=== PATIENT | female | born 1985 | race African-American/Black ===

== ENCOUNTER 2022-05-22 09:49 | Outpatient (REF) | payer OTHER, SELFPAY ==
[2022-05-22 10:00] LABS: MANUAL DIFF FLAG NO
[2022-05-22 10:30] LABS: Basophils Absolute Auto 0.1 X10*3/uL (0.0-0.2); Basophils Percent Auto 0.6 % (0-2); Eosinophils Absolute Auto 0.4 X10*3/uL (0.0-0.4); Eosinophils Percent Auto 3.8 % (0-4); Hematocrit 34.7 % (37.0-47.0); Imm Gran Abs Auto 0.04 X10*3/uL (0.00-0.03); Imm Gran Pct Auto 0.4 % (0.0-0.4); Lymphocytes Absolute Auto 4.2 X10*3/uL (1.2-4.9); Lymphocytes Percent Auto 39.6 % (20-40); Mean Corpuscular HGB Conc 31.7 g/dl (31.0-35.0); Mean Corpuscular Hemoglobin 24.8 pg (27.0-33.0); Mean Corpuscular Volume 78.3 fL (80.0-98.0); Mean Platelet Volume 9.6 fL (9.4-12.3); Monocytes Absolute Auto 0.7 X10*3/uL (0.1-1.2); Monocytes Percent Auto 6.7 % (2-11); Neutrophils Absolute Auto 5.2 x10*3/uL (2.0-8.3); Neutrophils Percent Auto 48.9 % (45-73); Platelet Count 398 X10*3/uL (160-400); Red Blood Count 4.43 X10*6/uL (4.20-5.50); White Blood Count 10.6 X10*3/uL (4.8-10.8)
[2022-05-22 11:08] LABS: Anion Gap 12 (12-20); Blood Urea Nitrogen 9 mg/dL (9-16); Carbon Dioxide 25 mmol/L (22-29); Chloride 107 mmol/L (96-108); Erythrocyte Sedimentation Rate 38 MM/HR (0-20); Estimated Glomerular Filt Rate > 60; Glucose Random 74 mg/dL (60-115); Potassium 4.2 mmol/L (3.3-5.1); Sodium 140 mmol/L (135-145)
[2022-05-23 18:53] LABS: Lyme Abs Screen <0.90 index
== END 2022-05-22 09:50 | disposition home or self-care (01) ==
LOC: HO.LAB 09:49
PROVIDERS: PCP Internal Medicine; Visit Provider Psychiatry & Neurology Neurology
DX: G35 Multiple sclerosis (principal)
CPT/HCPCS: 36415; 80048; 82550; 85025; 85652; 86617; 86618

== ENCOUNTER 2022-12-10 09:32 | Outpatient (REF) | payer OTHER, SELFPAY ==
--- NOTE | ~2022-12-10 | US_ITS ---
EXAMINATION: US THYROID CLINICAL INFORMATION: Multiple sclerosis. COMPARISON: None available. TECHNIQUE: Linear transducer grayscale and color Doppler examination with attention to the region of the thyroid. FINDINGS: SIZE: Measurements of the thyroid lobes and nodules are given in sagittal, anteroposterior and transverse dimensions respectively. Right Thyroid Lobe: 4.6 x 1.9 x 2.0 cm, volume 9.2 mL. Parenchyma: The gland echotexture is heterogeneous. Thyroid vascularity is normal. Left Thyroid Lobe: 4.7 x 1.7 x 1.9 cm, volume 8.0 mL. Parenchyma: The gland echotexture is heterogeneous. Thyroid vascularity is normal. Isthmus: 0.5 cm in maximum AP dimension. No focal thyroid nodule is seen. NODES: No lymphadenopathy is seen in the tissue surrounding the thyroid gland. ADDITIONAL FINDINGS: Anterior to the right thyroid lobe, a 2.1 x 1.4 x 1.6 cm hypoechoic nodule is seen. US/US thyroid IMPRESSION: 1. No thyroid goiter or nodule is seen. 2. There is heterogeneous thyroid echotexture, which can be associated with thyroiditis. 3. A 2.1 cm hypoechoic nodule is seen inferior to the right thyroid lobe, possibly a parathyroid adenoma or, less likely, a cervical lymph node. If relevant to patient management, this can be further evaluated with serum parathormone and calcium levels. ACR TI-RADS RECOMMENDATION REFERENCE: Ultrasound-guided fine-needle aspiration, followup ultrasound, no further follow up. * TR1 (0 point) and TR2 (2 points): No FNA or follow up. * TR3 (3 points): FNA if more than or equal to 2.5 cm in maximum dimension, followup ultrasound in 1, 3 and 5 years if 1.5 to 2.4 cm in maximum dimension. * TR4 (4-6 points): FNA if more than or equal to 1.5 cm in maximum dimension, followup ultrasound in 1, 2, 3 and 5 years if 1 to 1.4 cm in maximum dimension. * TR5 (more than or equal to 7 points): FNA if more than or equal to 1 cm in maximum dimension, followup ultrasound every year for 5 years if 0.5 to 0.9 cm in maximum dimension. * TR3, TR4 or TR5 nodules that are below the size threshold for followup receive no follow up.
== END 2022-12-10 09:33 | disposition home or self-care (01) ==
LOC: HO.US 09:32
PROVIDERS: PCP Internal Medicine; Visit Provider Psychiatry & Neurology Neurology
DX: G35 Multiple sclerosis (principal)
CPT/HCPCS: 76536

== ENCOUNTER 2024-11-15 09:54 | Outpatient (AMB) | payer OTHER, SELFPAY ==
--- NOTE | 2024-11-15 10:16 | A.OFFVIS_ITS ---
Intake Visit Reasons: 6 month MS Allergies No Known Allergies Allergy (Verified 11/08/24 07:59) Medication List - Last Reconciled 11/15/24 by Shelby Arnett MD baclofen 20 mg PO QID cetirizine 10 mg PO DAILY dalfampridine ER mg PO gabapentin 300 mg PO BID ocrelizumab (Ocrevus) mg IV sertraline 200 mg PO DAILY HPI Comments Details: 38 yr old woman with RR-MS. MS has been stable with no new Sx. Had increase in migraines to 3-4/ week , used Nurtec samples did not do much. No more falls? using a walker at all time.?Continuing PT 3/ wk with [facility]. Difficulty walking. Legs are heavy and painful. Loses train of thought and stops in a conversation and having trouble with driving directions. Left leg may shoot out and cramping in left hand and foot. 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 Cognitive difficulties and brain fog. Gets painful hand cramps more frequently. At times the left side gets stuck . Feels fatigued. Balance problems especially after shower and breathing is harder. Trouble controlling urine is better, using the clock. She gets flexor spasm and left toes daily. Brain stops in the middle of a conversation. [place] fuse and snaps quickly. This started about 1-1/2 years ago. She also has numbness and tingling in the lower extremities at night and paresthesias. Sometimes when she flexes her neck she gets a stinging sensation going down her entire body. There is no visual disturbance. She is become somewhat forgetful and difficulty concentrating. She feels fatigued all the time. She also has history of headaches were constant, dull headache and a more severe frontal throbbing headache with nausea without vomiting some photophobia that is brought on by stress anger, et cetera. She has had 2 MRIs of the brain, one in February of 2017 and the other in November of 2018, which I have reviewed. They are fairly classical for multiple sclerosis with multiple deep white matter lesions, Galeano's fingers, multiple corpus callosum lesions, some cortical lesions, none of which enhanced. There are black holes in the white matter and corpus callosum. There are at least 3 additional lesions in the MRI that was just done recently compared to the previous one. No enhancing lesions. Last Ocrevus was in July 2024. Last MRI was September 2023 [facility] Medical History (Updated 11/15/24 @ 10:19 by Shelby Arnett MD) Migraine Attention deficit Mood disorder Multiple sclerosis Review of Systems Const Details: leep:? Difficulty getting to sleepdenies.? Difficulty maintaining sleepdenies?.? Urge to move legsadmits.? Teeth grindingadmits.? Shouting or Kicking during sleep denies.? Abnormal behavior during sleepdenies.? Excessive sleepdenies.? Snoring denies.? Daytime sleepinessdenies. ???General/Constitutional:? Change in appetitedenies.? Chillsdenies.? Fatigueadmits.? Feverdenies.? Weight gainadmits.? Weight lossdenies. ???Ophthalmologic:? Blurred visiondenies.? Diminished visual acuitydenies. ???ENT:? Stuffinessdenies.? Decreased hearingdenies.? Dry mouthdenies.? Ear paindenies.? Nosebleeddenies.? Ringing in the earsdenies.? Sinus paindenies.? Sore throat denies.? Swollen glandsdenies. ???Endocrine:? Cold intolerancedenies.? Excessive thirstdenies.? Frequent urinationdenies.? Heat intolerancedenies. ???Respiratory:? Shortness of breathdenies.? Chest paindenies.? Coughdenies. ???Breast:? Breast lumpdenies.? Nipple dischargedenies. ???Cardiovascular:? Chest pain at restdenies.? Chest pain with exertiondenies.? Claudicationdenies .? Dizzinessdenies.? Fluid accumulation in the legsdenies.? Irregular heartbeat denies.? Palpitationsdenies. ???Gastrointestinal:? Abdominal paindenies.? Constipationdenies.? Diarrheadenies.? Difficulty swallowingdenies.? Heartburndenies.? Nauseaadmits.? Rectal bleedingdenies. ???Hematology:? Easy bruisingdenies.? Prolonged bleedingdenies. ???Genitourinary:? Frequent urinationadmits.? Urgencydenies.? Incontinenceadmits.? Erectile Dys functiondenies. ???Musculoskeletal:? Neck paindenies.? Back painadmits.? Muscle achesdenies.? Painful jointsadmits.? Sciaticadenies.? Weaknessdenies. ???Podiatric:? Difficulty walkingdenies.? Foot numbnessdenies. ???Neurologic:? Difficulty swallowingdenies.? Balance difficultyadmits.? Coordinationnormal.? Difficulty speakingdenies.? Dizzinessdenies.? Faintingdenies.? Gait abnormality admits.? Headachedenies.? Loss of strengthdenies.? Loss of use of extremity denies.? Low back paindenies.? Memory lossadmits.? Seizuresdenies.? Ticsdenies.? Tingling/Numbnessadmits.? Transient loss of visiondenies.? Tremoradmits. ???Psychiatric:? Anxietyadmits.? Auditory/visual hallucinationsdenies.? Delusionsdenies.? Depressed mooddenies.? Stressorsadmits.? Substance abusedenies.? Suicidal thoughtsdenies. Physical Exam Neuro Other: Neurological: Abnormal neurological findings:??Left hip flexors and hams are 4/5. 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 Bilateral Babinski, Slightly stiff legged spastic gait with rollator. Unable to walk on toes or tandem. Increased tone in BLE.?.?Mental Status:??alert and oriented X 3,?Normal attention, orientation, memory and affect.?Cranial Nerves:??Pupils are equal, round and reactive to light. Fundoscopy shows normal disc bilaterally. External occular muscles are intact. Visual wright are full, no ptosis. Face is symmetrical, no facial weakness or droop. Facial sensations are normal. Tongue protrudes in midline. Palate elevates symmetrically. Shoulder shrugging is normal..?Motor Examination:??Spasticity in LE. weakness as described above.?No atrophy or fasciculations,No drift of the extended upper extremities,Deep tendon reflexes are 3+,Plantars are extensor.?Straight Leg Raising:??90 deg vandana.?Sensory Exam:??Normal light touch, temperature, pinprick, vibration and joint-position sensations?,?Rhomberg sign is absent.?Coordination:??no ataxia,?no titubation,?tlvrue-ph-xaie, oava-hrlm-jfma test and rapid alternating movements were normal.?Gait Exam:??spastic stiff legged gait with rollator.?Cerebellar Signs:??Eaasnu-ri-wuuo and xfdl-vl-hrdb is normal,?no dysdiadochokinesia?.?Extrapyramidal System:??No tremor, rigidity with normal facial expressions,?No bradykinesia, no bradyphrenia. Normal arm swing and posture. No propulsion or retropulsion.?Speech:??Normal,?no dysphasia or dysa rthria..? Mini Mental Status Exam: Level of Consciousness:??Alert.?Orientation:??Knows correct year, month, date, day and season,?Knows correct city, county and state. Knows correct location and floor.?Registration:??Able to register 3 objects.?Attention:??Serial 7's performed accurately.?Recall:??Able to recall 3 out of 3 objects.?Language:??Normal spontaneous speech, fluency, repetition,naming, comprehension, reading and writing.?Total Score:??30/30.? General Examination: GENERAL APPEARANCE:??normal,?in no acute distress.?HEAD :??normocephalic,?atraumatic.?EYES:??sclera non-icteric,?conjunctiva clear.?EARS:??auditory canal clear,?tympanic membrane intact, clear.?NOSE:??no lesions.?ORAL CAVITY:??gums normal,?mucosa moist,?no lesions.?THROAT:??clear.?NECK/THYROID:??no cervical lymphadenopathy,?thyroid normal,?neck supple, full range of motion,?no carotid bruit.?SKIN:??no rashes,?no significant birthmarks.?HEART:??S1, S2 normal,?no murmurs.?LUNGS:??clear anteriorly and posteriorly.?CHEST:??no gross rib deformity,?clear to auscultation.?BACK:??normal exam of spine.?EXTREMITIES:??no edema.?PERIPHERAL PULSES:??normal.?PSYCH:??alert, oriented,?cognitive function intact,?cooperative with exam.? Assessment & Plan Assessment & Plan (1) Multiple sclerosis: Code(s): G35 - Multiple sclerosis Category: Medical (2) Attention deficit: Code(s): R41.840 - Attention and concentration deficit Category: Medical (3) Migraine: Code(s): G43.909 - Migraine, unspecified, not intractable, without status migrainosus Category: Medical Plan Continue current meds. Increase Baclofen for spasticity. Migraine prophylaxis with Topiramate and Sumatriptan PRN Orders: Orders MR head/brain wo/w con 3 Weeks G35 - Multiple sclerosis Medications: New dalfampridine ER 10 mg PO BID 180 tabs 3RF 90 days sumatriptan succinate do not exceed 2 doses per 24 hrs 100 mg PO Q4H PRN 9 tabs 5RF Migraine Headache 30 days MDD 200mg baclofen 20 mg PO QID 360 tabs 3RF 90 days topiramate 50 mg PO BID 60 tabs 5RF 30 days Coding Level of Care Code Est Pt Level 4 (74091) Diagnoses Multiple sclerosis G35 Attention deficit R41.840 Migraine G43.909
--- OUTSIDE RECORDS SUMMARY | 2024-11-15 11:03 | XMS_ITS | Patient Health Record ---
Author Organization [facility] Address [address] [place] [address] Support Name Relationship Address Phone Spencer [facility]all[facility] Emergency Contact [address], [place] [id number] Eva Chaudhary Guarantor Unknown [phone] Reason For Referral No Information Medications Medication SIG (Take, Route, Frequency, Duration) Notes Start Date End Date Status DULOXETINE HCL DR 60 MG CAP 30 1 po qd; Duration: 30 *please review for potential update for e-prescription and drug interaction check* 03/09/2017 Active Plan Of Treatment No Information Insurance Providers Payer Name Payer Address Payer Phone Subscriber Number Group Number Insured Name Patient Relationship to Insured Coverage Start Date Coverage End Date [employer] [address] [place] [address] [id number] Eva Chaudhary Self - patient is the insured Medical (General) History Surgical History Surgery Date(Month/Year) The patient has had no prior surgeries The patient has had no prior surgeries 2017-03-09
== END 2024-11-15 10:42 | disposition home or self-care (01) ==
LOC: HO.HSM 09:55
PROVIDERS: PCP Internal Medicine; Referring Provider Internal Medicine; Visit Provider Psychiatry & Neurology Neurology
DX: G35 Multiple sclerosis (principal); R41.840 Attention and concentration deficit; G43.909 Migraine, unspecified, not intractable, without status migrainosus
CPT/HCPCS: 99214

== ENCOUNTER 2025-02-14 09:02 | Outpatient (AMB) | payer OTHER, SELFPAY ==
--- NOTE | 2025-02-14 09:21 | A.OFFVIS_ITS ---
Intake Visit Reasons: 3m MS Allergies No Known Allergies Allergy (Verified 11/08/24 07:59) HPI Comments Details: 38 yr old woman with RR-MS. She is 18 weeks , DONG 07/20/25. MS has been stable with no new Sx but her walking is worse since she stopped her meds. 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 Some increase in spasticity. Last Ocrevus was July 2024. Had increase in migraines to 2-3/ week , used Nurtec samples did not do much. No more falls? using a walker at all time.?Continuing PT 3/ wk with [facility]. Difficulty walking. Legs are heavy and painful. Loses train of thought and stops in a conversation and having trouble with driving directions. Left leg may shoot out and cramping in left hand and foot. 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 Cognitive difficulties and brain fog. Gets painful hand cramps more frequently. At times the left side gets stuck . Feels fatigued. Balance problems especially after shower and breathing is harder. Trouble controlling urine is better, using the clock. She gets flexor spasm and left toes daily. Brain stops in the middle of a conversation. [place] fuse and snaps quickly. This started about 1-1/2 years ago. She also has numbness and tingling in the lower extremities at night and paresthesias. Sometimes when she flexes her neck she gets a stinging sensation going down her entire body. There is no visual disturbance. She is become somewhat forgetful and difficulty concentrating. She feels fatigued all the time. She also has history of headaches were constant, dull headache and a more severe frontal throbbing headache with nausea without vomiting some photophobia that is brought on by stress anger, et cetera. She has had 2 MRIs of the brain, one in February of 2017 and the other in November of 2018, which I have reviewed. They are fairly classical for multiple sclerosis with multiple deep white matter lesions, Galeano's fingers, multiple corpus callosum lesions, some cortical lesions, none of which enhanced. There are black holes in the white matter and corpus call osum. There are at least 3 additional lesions in the MRI on 11/04/23. Last MRI was 12/05/24 was without lacy and is reported as stable with no definite progression of disease. Next MRI planned for Mar-Apr 2026 [facility] Medical History (Updated 02/14/25 @ 09:34 by Shelby Arnett MD) Migraine Attention deficit Mood disorder Multiple sclerosis Review of Systems Const Details: leep:? Difficulty getting to sleepdenies.? Difficulty maintaining sleepdenies?.? Urge to move legsadmits.? Teeth grindingadmits.? Shouting or Kicking during sleep denies.? Abnormal behavior during sleepdenies.? Excessive sleepdenies.? Snoring denies.? Daytime sleepinessdenies. ???General/Constitutional:? Change in appetitedenies.? Chillsdenies.? Fatigueadmits.? Feverdenies.? Weight gainadmits.? Weight lossdenies. ???Ophthalmologic:? Blurred visiondenies.? Diminished visual acuitydenies. ???ENT:? Stuffinessdenies.? Decreased hearingdenies.? Dry mouthdenies.? Ear paindenies.? Nosebleeddenies.? Ringing in the earsdenies.? Sinus paindenies.? Sore throat denies.? Swollen glandsdenies. ???Endocrine:? Cold intolerancedenies.? Excessive thirstdenies.? Frequent urinationdenies.? Heat intolerancedenies. ???Respiratory:? Shortness of breathdenies.? Chest paindenies.? Coughdenies. ???Breast:? Breast lumpdenies.? Nipple dischargedenies. ???Cardiovascular:? Chest pain at restdenies.? Chest pain with exertiondenies.? Claudicationdenies .? Dizzinessdenies.? Fluid accumulation in the legsdenies.? Irregular heartbeat denies.? Palpitationsdenies. ???Gastrointestinal:? Abdominal paindenies.? Constipationdenies.? Diarrheadenies.? Difficulty swallowingdenies.? Heartburndenies.? Nauseaadmits.? Rectal bleedingdenies. ???Hematology:? Easy bruisingdenies.? Prolonged bleedingdenies. ???Genitourinary:? Frequent urinationadmits.? Urgencydenies.? Incontinenceadmits.? Erectile Dysfunctiondenies. ???Musculoskeletal:? Neck paindenies.? Back painadmits.? Muscle achesdenies.? Painful jointsadmits.? Sciaticadenies.? Weaknessdenies. ???Podiatric:? Difficulty walkingdenies.? Foot numbnessdenies. ???Neurologic:? Difficulty swallowingdenies.? Balance difficultyadmits.? Coordinationnormal.? Difficulty speakingdenies.? Dizzinessdenies.? Faintingdenies.? Gait abnormality admits.? Headachedenies.? Loss of strengthdenies.? Loss of use of extremity denies.? Low back paindenies.? Memory lossadmits.? Seizuresdenies.? Ticsdenies.? Tingling/Numbnessadmits.? Transient loss of visiondenies.? Tremoradmits. ???Psychiatric:? Anxietyadmits.? Auditory/visual hallucinationsdenies.? Delusionsdenies.? Depressed mooddenies.? Stressorsadmits.? Substance abusedenies.? Suicidal thoughtsdenies. Physical Exam Neuro Other: Neurological: Abnormal neurological findings:??Left hip flexors and hams are 4/5. 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 Bilateral Babinski, Slightly stiff legged spastic gait with rollator. Unable to walk on toes or tandem. Increased tone in BLE.?.?Mental Status:??alert and oriented X 3,?Normal attention, orientation, memory and affect.?Cranial Nerves:??Pupils are equal, round and reactive to light. Fundoscopy shows normal disc bilaterally. External occular muscles are intact. Visual wright are full, no ptosis. Face is symmetrical, no facial weakness or droop. Facial sensations are normal. Tongue protrudes in midline. Palate elevates symmetrically. Shoulder shrugging is normal..?Motor Examination:??Spasticity in LE. weakness as described above.?No atrophy or fasciculations,No drift of the extended upper extremities,Deep tendon reflexes are 3+,Plantars are extensor.?Straight Leg Raising:??90 degrees.?Sensory Exam:??Normal light touch, temperature, pinprick, vibration and joint-position sensations?,?Rhomberg sign is absent.?Coordination:??no ataxia,?no titubation,?rymczz-du-sefs, edds-puiy-rvwb test and rapid alternating movements were normal.?Gait Exam:??spastic stiff legged gait with rollator.?Cerebellar Signs:??Hrbooc-ey-gcry and iblk-vg-uecu is normal,?no dysdiadochokinesia?.?Extrapyramidal System:??No tremor, rigidity with normal facial expressions,?No bradykinesia, no bradyphrenia. Normal arm swing and posture. No propulsion or retropulsion.?Speech:??Normal,?no dysphasia or dysarthria..? Mini Mental Status Exam: Level of Consciousness:??Alert.?Orientation:??Knows correct year, month, date, day and season,?Knows correct city, county and state. Knows correct location and floor.?Registration:??Able to register 3 objects.?Attention:??Serial 7's performed accurately.?Recall:??Able to recall 3 out of 3 objects.?Language:??Normal spontaneous speech, fluency, repetition,naming, comprehension, reading and writing.?Total Score:??30/30.? General Examination: GENERAL APPEARANCE:??normal,?in no acute distress.?HEAD:??normocephalic,?atraumatic.?EYES:??sclera non- icteric,?conjunctiva clear.?EARS:??auditory canal clear,?tympanic membrane intact, clear.?NOSE:??no lesions.?ORAL CAVITY:??gums normal,?mucosa moist,?no lesions.?THROAT:??clear.?NECK/THYROID:??no cervical lymphadenopathy,?thyroid normal,?neck supple, full range of motion,?no carotid bruit.?SKIN:??no rashes,?no significant birthmarks.?HEART:??S1, S2 normal,?no murmurs.?LUNGS:??clear anteriorly and posteriorly.?CHEST:??no gross rib deformity,?clear to auscultation.?BACK:??normal exam of spine.?EXTREMITIES:??no edema.?PERIPHERAL PULSES:??normal.?PSYCH:??alert, oriented,?cognitive function intact,?cooperative with exam.? Assessment & Plan Assessment & Plan (1) Multiple sclerosis: Comment: Some increase in Sx after stopping all meds for her . Will resume Ocrevus and other meds in July after delivery. Code(s): G35 - Multiple sclerosis Category: Medical (2) Attention deficit: Code(s): R41.840 - Attention and concentration deficit Category: Medical (3) Migraine: Code(s): G43.909 - Migraine, unspecified, not intractable, without status migrainosus Category: Medical Plan Stay off meds during DONG 07/21/25 Coding Level of Care Code Est Pt Level 4 (63977) Diagnoses Multiple sclerosis G35 Attention deficit R41.840 Migraine G43.909
== END 2025-02-14 09:38 | disposition home or self-care (01) ==
LOC: HO.HSM 09:03
PROVIDERS: PCP Internal Medicine; Visit Provider Psychiatry & Neurology Neurology
DX: G35.D Multiple sclerosis, unspecified (principal); R41.840 Attention and concentration deficit; G43.909 Migraine, unspecified, not intractable, without status migrainosus
CPT/HCPCS: 99214